=== PATIENT | male | born 1970 | race African-American/Black ===

== ENCOUNTER 2017-12-13 23:51 | Emergency (ER) | payer OTHER ==
[~2017-12-13] VITALS: Ht 190.5 cm; Wt 125.7 kg
[~2017-12-13 23:51] MED LIST: CEFTIN500 MG PO; MEDROL DOSEPAK4 MG PO; PERCOCET 5/31 TABLET PO; ZITHROMAX500 MG PO
[2017-12-14 00:03] VITALS: BP 128/90
[2017-12-14] MEDS ORDERED: MOTRIN800 MG PO (02:28)
[2017-12-14] MEDS ORDERED: PERCOCET 5/31 TABLET PO (02:28)
== END 2017-12-14 03:15 | disposition home or self-care (01) ==
LOC: EME 23:51
PROC: 2W3RX1Z Immobilization of Left Lower Leg using Splint (ICD-10-PCS; principal; 2017-12-13)
DX: S82.832A Other fracture of upper and lower end of left fibula, initial encounter for closed fracture (principal); W10.9XXA Fall (on) (from) unspecified stairs and steps, initial encounter; F17.200 Nicotine dependence, unspecified, uncomplicated
CPT/HCPCS: 73610; 99281; 99284